=== PATIENT | male | born 1960 | race Caucasian/White ===

== ENCOUNTER 2017-08-04 03:57 | Inpatient (IN) | END 2017-08-12 12:05 | disposition home or self-care (01) | DRG 203 ==

== ENCOUNTER 2017-11-10 20:49 | Inpatient (IN) | END 2017-11-16 17:00 | disposition home or self-care (01) | DRG 189 ==

== ENCOUNTER 2018-11-09 11:56 | Emergency (ER) | payer OTHER ==
[~2018-11-09] VITALS: Ht 167.6 cm; Wt 67.6 kg
[~2018-11-09 11:56] MED LIST: ADV25050 INHALATION; ALBU90AE INHALATION; IPRA3AMP29 HHN; Ipratropium 0.02% (Neb) HHN; LEVA15HF6 INH; LEVO750T25 PO; MED4DP PO; MONT10TA24 PO; PANT40TA4 PO
[2018-11-09 12:01] VITALS: BP 123/79; PULSE 75; RESP 16; Ht 167.6 cm; Wt 67.6 kg
[2018-11-09] MEDS ORDERED: DOXY100T20 PO (13:27)
[2018-11-09] MEDS ORDERED: BENZ200C68 PO (13:27)
[2018-11-09] MEDS ORDERED: PRED20TA PO (13:27)
[2018-11-09] MEDS ORDERED: ALBU18HF INHALATION (13:27)
--- NOTE | 2018-11-09 15:19 | ERD ---
ER Documentation Chief Complaint Chief Complaint pt sent by PCP for abscess to back of neck, sent for I&D HPI 58-year-old male past medical history of asthma presenting to the emergency dep artment with complaints of small abscess to the left posterior neck for 4 days. He reports associated pain which is rated 4/10 in severity. He also reports pruritus localized to that area. He has no history of similar symptoms in the past. Additionally he reports mild intermittent shortness of breath and productive cough for the past 1 week. Denies any fevers or chills chest pain or other symptoms at this time. ROS All systems reviewed and are negative except as per history of present illness. Medications Home Meds Active Scripts Albuterol Sulfate* (Ventolin HFA*) 18 Gm Hfa.aer.ad, 2 PUFF INHALATION Q4H, #1 INHALER Prov:SIM KHAN PA-C 11/09/18 Benzonatate* (Benzonatate*) 200 Mg Capsule, 200 MG PO TID PRN for COUGH, #15 CAP Prov:SIM KHAN PA-C 11/09/18 Prednisone* (Prednisone*) 20 Mg Tab, 40 MG PO DAILY for 4 Days, TAB Prov:SIM KHAN PA-C 11/09/18 Doxycycline Hyclate* (Doxycycline Hyclate*) 100 Mg Tablet.dr, 100 MG PO BID for 10 Days, TAB Prov:SIM KHAN PA-C 11/09/18 Levalbuterol* (Xopenex* HFA) 15 Gm Inha, 2 PUFFS INH Q4H PRN for WHEEZING AND SOB for 30 Days, INHALER Prov:AME DIEHL MD 11/16/17 Methylprednisolone* (Medrol* DOSE PACK) 4 Mg/Dose-Pack Tab.ds.pk, 4 MG PO . D IRECTED for 14 Days, PACKET Prov:AME DIEHL MD 11/16/17 Montelukast Sodium* (Montelukast Sodium*) 10 Mg Tablet, 10 MG PO DAILY for 28 Days, TAB Prov:AME DIEHL MD 11/16/17 [Ipratropium 0.02% (Neb)] 0.5 MG/2.5 ML NEBU No Conflict Check, 0.5 MG HHN Q4H RESP THERAPY for 10 Days Prov:AME DIEHL MD 11/16/17 Levofloxacin* (Levaquin*) 750 Mg Tablet, 750 MG PO DAILY@06 for 7 Days, TAB Prov:AME DIEHL MD 11/16/17 Pantoprazole* (Pantoprazole*) 40 Mg Tablet.dr, 40 MG PO QPM for 30 Days Prov:AME DIEHL MD 11/16/17 Ipratropium-Albuterol (Ipratropium-Albuterol) 0.5-3 Mg/3 Ml Ampul.neb, 3 ML HHN Q2H RESP THERAPY PRN for SHORTNESS OF BREATH for 30 Days Prov:AME DIEHL MD 11/16/17 Albuterol Sulfate (Proair Respiclick) 90 Mcg Aer.pow.ba, 2 PUFFS INHALATION Q4 for 30 Days, BOTTLE Prov:ALLEGRA LAMB 08/12/17 Salmeterol Xinaf/Fluticasone* (Advair*) 250-50 Diskus Inhaler, 1 INH INHALATION BID, #1 INHALER Prov:ALLEGRA LAMB 08/12/17 Allergies Allergies: Coded Allergies: ibuprofen (Verified Allergy, Unknown, 08/04/17) PMhx/Soc History of Surgery: Yes (hernia repair) Anesthesia Reaction: No Hx Neurological Disorder: No Hx Respiratory Disorders: Yes (asthma, bonchitis) Hx Cardiac Disorders: No Hx Psychiatric Problems: No Hx Miscellaneous Medical Probl: No Hx Alcohol Use: No Hx Substance Use: No Hx Tobacco Use: No Smoking Status: Never smoker FmHx Family History: No diabetes Physical Exam Vitals Vital Signs Date Temp Pulse Resp B/P (MAP) Pulse Ox O2 O2 Flow FiO2 Time Delivery Rate 11/09/18 98.6 75 16 123/79 95 12:01 (94) Physical Exam Const: No acute distress Head: Atraumatic Eyes: Normal Conjunctiva ENT: Normal External Ears, Nose and Mouth. Neck: Full range of motion. No meningismus. Resp: Shallow inspiratory effort. Mild forced expiratory wheeze. No respiratory distress. Cardio: Regular rate and rhythm, no murmurs Skin: No petechiae or rashes. Approximate 1 cm x 1 cm fluctuant abscess noted to the left posterior neck. No significant surrounding erythema. Back: No midline or flank tenderness Ext: No cyanosis, or edema Neur: Awake and alert Psych: Normal Mood and Affect Procedures/MDM 58-year-old male presenting to the emergency department with signs and symptoms most consistent with uncomplicated abscess noted to the left posterior neck. The patient was informed of the full risks, benefits, alternatives and he gave consent for incision and drainage. Abscess Incision and Drainage with irrigation by me: Location: Left posterior neck Anesthesia: Local 1% Lidocaine Technique: Irrigated. Disrupted loculations w/ instrumentation Packing: None Complications: Neurovascularly intact post procedure 48 hour wound check. Scar minimization instructions given. Medical decision making: Patient presents with abscess to the left posterior neck which was drained successfully by myself. See procedure note above. Patient also had signs and symptoms consistent with acute bronchitis and he will be treated as an outpatient. Patient's respiratory status has stabilized while in the department and is appropriate for outpatient work up. Exam and work up not consistent w/ impending respiratory failure or cardiovascular collapse. Patient's skin symptoms have stabilized while they have been evaluated in the department and are appropriate for outpatient care and work up. Exam and w/u not consistent w/ sepsis, deep space infection, or foreign body. No evidence of life-threatening pathology at time of discharge. Pt/family in agreement with discharge plan/diagnosis. Pt/family advised to return immediately with any new or worsening symptoms. Follow-up with primary care physician within the next 1-2 days. Disclaimer: Inadvertent spelling and grammatical errors are likely due to EHR/dictation software use and do not reflect on the overall quality of patient care. Also, please note that the electronic time recorded on this note does not necessarily reflect the actual time of the patient encounter. Departure Diagnosis: Primary Impression: Abscess Additional Impression: Bronchitis Condition: Fair Patient Instructions: Abscess, Incision And Drainage, Bronchitis, Antiobiotic Treatment (Adult) [facility] Usted se pruitt hecho un examen mdico de control que le indica que no est en idris condicin que requiera tratamiento urgente en el Departamento de Emergencia. Un estudio ms profundo y el tratamiento de rogers condicin pueden esperar sin ningn riesgo hasta que usted sea atendida/o en el consultorio de rogers mdico o idris clnica. Es responsabilidad suya arreglar idris phill para el seguimiento del ernestina. MANEJO DE CONDICIONES NO URGENTES EN EL FUTURO 1) Si usted tiene un mdico de atencin primaria: Usted debera llamar a rogers mdico de atencin primaria antes de venir al departamento de emergencia. Despus de las horas de consultorio, rogers doctor o rogers asociado/a est disponible por telfono. El mdico o enfermero de elkin en el servicio telefnico puede asesorarle por levi medio para atender el problema, o ernestina contrario se puede programar idris phill. 2) Si usted no tiene un mdico de atencin primaria: Llame al mdico o clnica de referencia que aparece abajo gerardo las horas de consultorio para hacer idris phill para que le vean. CLINICAS: [facility] [phone] [facility] [phone] [facility]. [facility] [phone] [facility]. [facility] [phone] [facility]. [facility] [phone] [id number] [facility]. [phone] Additional Instructions: Llame al doctor MAANA y sujata idris PHILL PARA DENTRO DE 1-2 ABREU.Dgale a la secretaria que nosotros le instruimos hacer esta phill.Avise o llame si rogers condicin se empeora antes de la phill. Regresa aqui si peor o no mejor. SIM KHAN PA-C Nov 09, 2018 15:19
== END 2018-11-09 13:32 | disposition home or self-care (01) ==
LOC: FTE 11:56
DX: L02.11 Cutaneous abscess of neck (principal); J40 Bronchitis, not specified as acute or chronic